=== PATIENT | male | born 1975 | race African-American/Black ===

== ENCOUNTER 2023-06-27 20:21 | Emergency (ER) | payer SELFPAY | END 2023-06-27 22:15 | disposition home or self-care (01) | LOC: MW.ED 20:21 | DX: S92.512A Displaced fracture of proximal phalanx of left lesser toe(s), initial encounter for closed fracture (principal); Z75.8 Other problems related to medical facilities and other health care; W22.8XXA Striking against or struck by other objects, initial encounter | CPT/HCPCS: 73630-26-LT; 73630-LT; 99283 ==